=== PATIENT | female | born 1995 | race Caucasian/White ===

== ENCOUNTER 2019-03-03 15:40 | Emergency (ER) | payer BC ==
[2019-03-03] MEDS: ACETAMINOPHEN 325 MG TAB PO (16:29)
[2019-03-03] MEDS: LIDOCAINE 1% (MPF) 5 ML VIAL INFIL (16:40)
[2019-03-03] MEDS: DIPHTH/TET/ACEL PERTUSS (ADULT) 0.5 ML VIAL IM* (16:45)
== END 2019-03-03 18:10 | disposition home or self-care (01) ==
LOC: FTE 15:40
DX: S01.01XA Laceration without foreign body of scalp, initial encounter (principal); W01.198A Fall on same level from slipping, tripping and stumbling with subsequent striking against other object, initial encounter; Y92.89 Other specified places as the place of occurrence of the external cause; Z23 Encounter for immunization
CPT/HCPCS: 12001; 90471; 90715; 99283-25

== ENCOUNTER 2019-03-05 10:59 | Emergency (ER) | payer BC | END 2019-03-05 11:39 | disposition home or self-care (01) | LOC: FTE 10:59 | DX: Z48.01 Encounter for change or removal of surgical wound dressing (principal) | CPT/HCPCS: 99281 ==

== ENCOUNTER 2019-03-12 13:54 | Emergency (ER) | payer BC | END 2019-03-12 16:09 | disposition home or self-care (01) | LOC: FTE 13:54 | DX: Z48.02 Encounter for removal of sutures (principal) | CPT/HCPCS: 99281 ==